=== PATIENT | female | born 1945 | race Caucasian/White ===

== ENCOUNTER 2023-07-29 07:06 | Day surgery (SDC) | payer OTHER ==
[~2023-07-29 07:06] MED LIST: CIPRO750 MG PO; CLONAZEPAM1 MG PO; COLACE100 MG PO; DILTIAZEM ER60 MG PO; HUMALOG100 UNIT/2 SQ; LANTUS SOL100 UNIT/1 SQ; METHYLPRED4 MG/DOSE- PO; NEURONTIN800 MG PO; PERCOCET 5/3251 TAB PO
== END 2023-07-29 18:50 | disposition home or self-care (01) ==
LOC: CIR.AMB 07:06
PROVIDERS: ATTEND Colon & Rectal Surgery
DX: N81.6 Rectocele (principal); K64.2 Third degree hemorrhoids; R32 Unspecified urinary incontinence; Z88.0 Allergy status to penicillin; Z88.6 Allergy status to analgesic agent; Z20.822 Contact with and (suspected) exposure to COVID-19